=== PATIENT | female | born 1990 | race Caucasian/White ===

== ENCOUNTER 2016-12-03 08:06 | Emergency (ER) | payer SELFPAY ==
[2016-12-03 08:16] VITALS: BP 127/90
--- NOTE | 2016-12-03 08:55 | EDM.PDOC ---
ED HPI GENERAL MEDICAL PROBLEM - General Chief Complaint: ENT Problem Stated Complaint: DENTAL COMPLAINT Time Seen by Provider: 12/03/16 08:51 Source of Information: Reports: Patient History Limitations: Reports: No Limitations - History of Present Illness INITIAL COMMENTS - FREE TEXT/NARRATIVE: 26-year-old female presents to the ED with complaints of right upper molar dental pain that started during the night. She no sent tooth is bad but has not had definitive dental care. Stim teeth are still present. No recent dental interventions. Pain is described as constant and throbbing. Interrupted her sleep during the night. Examination reveals dental caries involving the right upper molar teeth. This appears to be the wisdom tooth that is only partially erupted. No dental abscess is evident along the gingiva margin. No lymphadenopathy no fascial swelling. Plan continue Motrin 60 mg every 6 hours or Aleve 2 tablets every 8 hours for pain and inflammation reduction. Percocet tabs 06/30/24 one or 2 every 4-6 hours for pain not controlled by Motrin or Aleve alone. Antibiotic to be clindamycin 300 mg 3 times daily for the next 8 days to clear up infection with dentist next week as planned. Onset: Today Onset Date: 12/03/16 Onset Time: 01:00 Duration: Hour(s): Location: Reports: Face (dental pain right upper molars) Quality: Reports: Ache, Pressure, Throbbing, Other Severity: Moderate (pounding) Improves with: Reports: None (to severe) Worsens with: Reports: None Context: Denies: Activity, Exercise, Lifting, Sick Contact, Trauma, Other Associated Symptoms: Reports: No Other Symptoms Treatments LEASING DIRECTOR: Reports: Acetaminophen Right Upper Oral/Mouth Pain Score (Numeric/FACES): 10 - Related Data Allergies Allergy/AdvReac Type Severity Reaction Status Date / Time No Known Allergies Allergy Verified 12/03/16 08:16 Home Meds: Home Meds Clindamycin HCl 300 mg PO TID #24 capsule 12/03/16 [Rx] oxyCODONE HCl/Acetaminophen [Percocet 5-325 mg Tablet] 1 - 2 each PO Q4H PRN # 20 tablet 12/03/16 [Rx] Past Medical History - Past Health History Medical/Surgical History: Denies Medical/Surgical History Social & Family History - Tobacco Use Smoking Status *Q: Unknown Ever Smoked ED ROS ENT - Review of Systems Review Of Systems: See Below Constitutional: Reports: Fatigue (from not sleeping all night.). Denies: Fever , Chills, Malaise, Weakness HEENT: Reports: Dental Pain Respiratory: Reports: No Symptoms (see history of present illness) Cardiovascular: Reports: No Symptoms Endocrine: Reports: No Symptoms GI/Abdominal: Reports: No Symptoms : Reports: No Symptoms Musculoskeletal: Reports: No Symptoms Skin: Reports: No Symptoms Neurological: Reports: No Symptoms Psychiatric: Reports: No Symptoms Hematologic/Lymphatic: Reports: No Symptoms Immunologic: Reports: No Symptoms ED EXAM, ENT - Physical Exam Exam: See Below Exam Limited By: No Limitations General Appearance: Alert, WD/WN, Mild Distress Mouth/Throat: Normal Inspection, Normal Gums, Normal Lips ( ), Dental Tenderness (DENTAL TENDERNESS IS DUE TO INFECTED). No: Dental Trauma Head: Atraumatic, Normocephalic (T ABSCESS FORMATION EVIDENT.) Neck: Normal Inspection, Supple, Non-Tender, Full Range of Motion. No: Lymphadenopathy (L), Lymphadenopathy (R) Respiratory/Chest: No Respiratory Distress, Lungs Clear, Normal Breath Sounds, No Accessory Muscle Use Cardiovascular: Normal Peripheral Pulses, Regular Rate, Rhythm, No Edema, No Gallop, No Murmur GI/Abdominal: Normal Bowel Sounds, Soft, Non-Tender, No Organomegaly, No Distention Course - Vital Signs Last Recorded V/S: Last Vital Signs Temp 36.9 C 12/03/16 08:14 Pulse 72 12/03/16 08:14 Resp 18 12/03/16 08:14 BP 127/90 12/03/16 08:14 Pulse Ox 100 12/03/16 08:14 - Radiology Interpretation Free Text/Narrative:: 26-YEAR-OLD FEMALE PRESENTS THE ed WITH DENTAL PAIN THAT STARTED DURING THE NIGHT. iT APPEARS TO BE FROM DENTAL CARIES INVOLVING THE RIGHT UPPER THIRD MOLAR WHICH IS ONLY PARTIALLY ERUPTED. tREATED FOR PAIN RELIEF WITH pERCOCET 5/3 /25 MILLIGRAM TABLET 1 OR 2 EVERY 4-6 HOURS FOR PAIN RELIEF IN COMBINATION WITH mOTRIN OR aLEVE. cLINDAMYCIN 3 MG 3 TIMES A DAY FOR 8 DAYS PROVIDED. sHE HAS AN APPOINTMENT TO SEE THE DENTIST ON tuesday NEXT WEEK. Departure - Departure Time of Disposition: 08:51 Disposition: Home, Self-Care 01 Condition: Fair Clinical Impression: Dental caries, Pain, dental - Discharge Information Prescriptions: Clindamycin HCl 300 mg PO TID #24 capsule oxyCODONE HCl/Acetaminophen [Percocet 5-325 mg Tablet] 1 - 2 each PO Q4H PRN # 20 tablet PRN Reason: pain relief. Referrals: PCP,None [Primary Care Provider] - Forms: ED Department Discharge Additional Instructions: evaluation in the emergency him today in regards to dental pain from right upper molar tooth. The tooth does need to be extracted. Likely secondary infection is occurred in the root of the tooth. Treatment is to continue either Motrin 600 mg every 6 hours or Aleve 2 tablets every 8 hours to reduce pain and inflammation. May use Percocet 5/3/25 milligram tablet 1 or 2 every 4-6 hours for pain not relieved by Motrin alone. However if you take this medication should not operate a motor vehicle or machinery. Antibiotic to be clindamycin 300 mg 3 times daily for the next 8 days to clear up dental infection. Follow- up with dentist early next week as planned for definitive long-term management.
== END 2016-12-03 09:10 | disposition home or self-care (01) ==
LOC: JD.ED 08:06
DX: K02.9 Dental caries, unspecified (principal)
CPT/HCPCS: 99282; 99283